=== PATIENT | male | born 1960 | race Caucasian/White ===

== ENCOUNTER → 2020-02-07 12:00 | Outpatient (CLI) | payer OTHER, SELFPAY ==
[2020-02-07 12:41] LABS: NT Pro Brain Natriuretic Pep. 2580 pg/mL (0-125)
[2020-02-07 12:44] LABS: Troponin I 0.37 ng/ml (0.00-0.034)
== END ==
PROVIDERS: Visit Provider Family Medicine
DX: I25.119 Atherosclerotic heart disease of native coronary artery with unspecified angina pectoris (principal)
CPT/HCPCS: 36415; 83880; 84484

== ENCOUNTER → 2020-09-24 09:00 | Outpatient (CLI) | payer OTHER, SELFPAY ==
--- NOTE | 2020-09-24 09:04 | XR_ITS ---
PROCEDURE: XR SHOULDER RT MIN 2V CLINICAL INDICATION: ROTATOR CUFF SYNDROM OF RT SHOULDER, PAIN OF RT SHOULDER COMPARISON: No exams were available for comparison FINDINGS: No fracture or dislocation. No lytic or blastic change. There is normal mineralization. Hypertrophic changes are present along the undersurface of the distal clavicle with narrowing of the sub acromial space . Glenohumeral joint has an unremarkable appearance. 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
== END ==
PROVIDERS: PCP Family Medicine; Visit Provider Family Medicine
DX: M25.511 Pain in right shoulder (principal); M75.101 Unspecified rotator cuff tear or rupture of right shoulder, not specified as traumatic
CPT/HCPCS: 73030

== ENCOUNTER → 2023-07-13 20:03 | Outpatient (CLI) | payer OTHER, SELFPAY | LOC: SL 20:05 | PROVIDERS: PCP Family Medicine; Visit Provider Family Medicine | DX: G47.30 Sleep apnea, unspecified (principal); R06.83 Snoring; I10 Essential (primary) hypertension; E66.9 Obesity, unspecified | CPT/HCPCS: 95810 ==